=== PATIENT | female | born 1950 | race Caucasian/White ===

== ENCOUNTER → 2017-09-15 | Day surgery (SDC) | payer MEDICARE ==
[~2017-09-15] VITALS: Ht 162.6 cm; Wt 66.0 kg
[~2017-09-15] MED LIST: ALBI1INJ SQ; ALBI1INJ2 SQ; AZEL1SPR2 EACH NARE; BUPIVACAINE HCL PF 0.5% 30 ML VIAL ONE; CHLORHEXIDINE GLUCONATE 2 % 1 PACK (2 CLOTHS) TOPICAL PRN; CIPR250T52 PO; CIPROFLOXACIN/DEXT 400 MG/200 ML IV PRN; CLOP75TA PO; DOXY100C PO; DULO1CAP3 PO; EMPA1TAB PO; GLIM2TAB PO; INSULIN HUMAN REGULAR 1,000 UNITS/10 ML VIAL SQ PRN; LACTATED RINGER'S 1000 ML IV PRN; LIDOCAINE HCL 2% 50 ML VIAL ONE; LISI-515 PO; METF1000 PO; METOPROLOL TARTRATE 25 MG TAB PO PRN; MIDAZOLAM HCL 2 MG/2 ML VIAL ONE; NEOMYCIN/POLYMYXIN 1 ML G.U. IRRIGANT ONE; NORC5TAB PO; POVIDONE IODINE 5% (ANTISEPSIS KIT) 4 APPLICATIONS EACH NARE PRN; PROPOFOL 200 MG/20 ML AMP IV ONE; ROSU5 PO; SODIUM CHLORID 0.9% 500 ML IV PRN; TEMA30CA PO; VENTAER INH; VITA1000 PO; WELLTAB39 PO
[2017-09-15 09:19] LABS: HEMATOCRIT 43.2 % (35.0-46.0); MEAN CELL VOLUME 93.1 FL (80.0-100.0); MEAN CORPUSCULAR HEMOGLOBIN 31.7 PG (27.0-34.0); PLATELET COUNT 273 TH/MM3 (150-450); RED BLOOD COUNT 4.63 MIL/MM3 (4.00-5.30); RED CELL DISTRIBUTION WIDTH 12.2 % (11.6-17.2); REVIEW FLAG FINAL; WHITE BLOOD COUNT 9.5 TH/MM3 (4.0-11.0)
[2017-09-15 11:10] VITALS: BP 107/84; PULSE 78; RESP 16; TEMP 98.2; O2SAT 99
--- NOTE | 2017-09-15 11:37 | MP ---
cc: CARLOS BARRY III, M.D. DATE OF SURGERY 09/15/2017 PREOPERATIVE DIAGNOSIS Left third and fourth trigger fingers. PROCEDURE 1. Left third A1 laurence release 2. Left fourth A1 laurence release. SURGEON Carlos Barry III, MD PROCEDURE The patient was brought to the operating room, placed supine on the operating table. After the correct site and side of surgery were verified by members of each team in the room multiple times including the patient and myself and after adequate preoperative markings and preoperative written consent was verified by everyone and after adequate preoperative IV sedation had been achieved, the left upper extremity was prepped and draped in the traditional sterile surgical fashion. A 50/50 mixture of 2% plain lidocaine, 0.5% plain Marcaine was infiltrated into the skin and subcutaneous tissue over the A1 laurence. The limb was exsanguinated with an Miguel wrap. A highly placed well-padded axillary tourniquet was inflated to 200 mmHg for a total of 12 minutes. A transverse oriented incision within the distal palmar flexion crease was made over the left third A1 laurence and carried down through skin and subcutaneous tissue. Blunt dissection was performed. The A1 laurence was identified and divided in its line in its entirety from its proximal most to its distal-most extents. Exploration proximally was done to free up any investing tissues that also confined the flexor tendons. The flexor tendons were then examined and found to be in continuity and uninjured, but with a moderately hypertrophic tenosynovium. There are no other anatomic abnormalities identified. Thorough irrigation with saline was performed and the skin edges were then reapproximated using running 4-0 nylon suture. The identical procedure was then performed on the left fourth A1 laurence. The hand and arm were thoroughly cleansed and dried. Betadine Adaptic dressings applied were applied on top of the wound followed by a bulky soft dressing and then a circumferential dressing was applied in the usual fashion. The axillary tourniquet was released after 12 total minutes. The hand and all the fingers became immediately soft, pink and warm and had brisk capillary refill of less than two seconds. The sponge, needle, and instrument counts were correct at the end of the case as reported by the nurses in the room. MD BENTLEY Randlal III /10:48 AM /11:21 AM
== END | disposition home or self-care (01) ==
LOC: PHSDC 08:26
PROVIDERS: ATTEND Orthopaedic Surgery Hand Surgery
DX: M65.332 Trigger finger, left middle finger (principal); M65.342 Trigger finger, left ring finger; I10 Essential (primary) hypertension
CPT/HCPCS: 01810; 26055; 36415; 85027; J0744; J2250; J7120